=== PATIENT | male | born 1970 | race Caucasian/White ===

== ENCOUNTER 2024-07-11 11:53 | Inpatient (IN) | payer OTHER ==
[2024-07-11 12:29] VITALS: BMI 23.8
[2024-07-11] MEDS ORDERED: IBUPROFEN 600 MG TABLET (FP) PO PRN (12:52)
[2024-07-11] MEDS ORDERED: NALOXONE (NARCAN) HCL 4 MG/0.1 ML SPRAY NS PRN (12:52)
[2024-07-11] MEDS ORDERED: POLYETHYLENE GLYCOL (HEALTHYLAX) 3350 17 GM PACKET PO PRN (12:52)
[2024-07-11] MEDS ORDERED: ACETAMINOPHEN 325 MG TABLET (FP) PO PRN (12:52)
[2024-07-11] MEDS ORDERED: BENZONATATE 200 MG CAPSULE PO PRN (12:52)
[2024-07-11] MEDS ORDERED: MAGNESIUM HYDROX 2400MG/30ML ORAL SUSPENSION 30 ML CUP PO PRN (12:52)
[2024-07-11] MEDS ORDERED: NICOTINE POLACRILEX 2 MG GUM BUC PRN (12:52)
[2024-07-11] MEDS ORDERED: guaiFENesin 600 MG TABLET.ER (FP) PO PRN (12:52)
[2024-07-11] MEDS ORDERED: BISMUTH SUBSALICYLATE 524 MG/30 ML PO PRN (12:52)
[2024-07-11] MEDS ORDERED: ONDANSETRON *ODT* 4 MG TABLET SL PRN (12:52)
[2024-07-11] MEDS ORDERED: IBUPROFEN 400 MG TABLET (FP) PO PRN (12:52)
[2024-07-11] MEDS ORDERED: hydrOXYzine PAMOATE 25 MG CAPSULE (FP) PO PRN (12:52)
[2024-07-11] MEDS ORDERED: chlordiazePOXIDE HCL 25 MG CAPSULE PO PRN (12:52)
[2024-07-11] MEDS ORDERED: BENZOCAINE/MENTHOL (CHLORASEPTIC ) LOZENGE MM PRN (12:52)
[2024-07-11] MEDS ORDERED: NICOTINE POLACRILEX 2 MG LOZENGE BC PRN (12:52)
[2024-07-11] MEDS ORDERED: MAG HYDROX/AL HYDROX/SIMETH 30 ML UNIT-DOSE CUP PO PRN (12:52)
[2024-07-11] MEDS: amLODIPine BESYLATE 5 MG TABLET (FP) PO SCH (15:01)
[2024-07-11] MEDS ORDERED: amLODIPine BESYLATE 5 MG TABLET (FP) ONE (15:02)
[2024-07-11] MEDS: hydrOXYzine PAMOATE 50 MG CAPSULE (FP) PO PRN (15:48)
[2024-07-11] MEDS: chlordiazePOXIDE HCL 25 MG CAPSULE PO SCH (17:10)
[2024-07-11] MEDS: NALTREXONE HCL 50 MG TABLET PO ONE (18:14)
[2024-07-11] MEDS: VITAMINS A AND D TOPICAL OINTMENT TP SCH (19:10)
[2024-07-11] MEDS: MELATONIN 5 MG TABLETS PO SCH (22:39)
[2024-07-11] MEDS: APIXABAN 5 MG TABLET PO SCH (22:39)
[2024-07-11] MEDS: THIAMINE 100 MG TABLET PO SCH (22:41)
[2024-07-11] MEDS: CLOTRIMAZOLE 1% CREAM TP SCH (22:41)
[2024-07-11] MEDS: METHOCARBAMOL 500 MG TABLET PO PRN (22:41)
[2024-07-11] MEDS: MIRTAZAPINE 15 MG TABLET (FP) PO SCH (22:42)
[2024-07-12] MEDS: LEVOTHYROXINE NA 150 MCG TABLET PO SCH (08:10)
[2024-07-12] MEDS: LEVOTHYROXINE 50 MCG, LEVOTHYROXINE 100 MCG PO SCH (09:07)
[2024-07-12] MEDS: PRENATAL VITAMINS W/ FOLIC ACID TABLET (FP) PO SCH (10:28)
[2024-07-12] MEDS: NALTREXONE HCL 50 MG TABLET PO SCH (10:29)
[2024-07-12] MEDS: NICOTINE 14 MG/24 HOURS TOPICAL PATCH TD SCH (10:34)
[2024-07-12] MEDS: DICYCLOMINE HCL 10 MG CAPSULE PO PRN (15:03)
[2024-07-12] MEDS: PANTOPRAZOLE 40 MG TABLET PO SCH (15:33)
[2024-07-12] MEDS: TRIMETHOBENZAMIDE HCL 200MG/2ML INJ IM PRN (15:38)
[2024-07-12 16:02] LABS: HEMATOCRIT 41.1 % (35.4-49); MCH 31.4 pg (25.7-33.7); MCHC 34.2 g/dl (32.0-35.9); MEAN CELL VOLUME 91.9 fl (80-96); MEAN PLT VOLUME 9.6 fl (7.5-11.1); PLATELET COUNT 200 10^3/uL (134-434); RBC 4.48 M/mm3 (4.00-5.60); RDW 13.3 % (11.9-15.9); WHITE BLOOD COUNT 7.5 K/mm3 (4.0-10.0)
[2024-07-12 18:29] LABS: POTASSIUM 4.4 mmol/L (3.5-5.1)
[2024-07-12 18:37] LABS: ALBUMIN 3.6 g/dl (3.4-5.0); CALCIUM 9.6 mg/dL (8.5-10.1)
[2024-07-12 18:40] LABS: CREATININE 0.9 mg/dL (0.55-1.3)
[2024-07-12 18:42] LABS: TOT PROT 6.8 g/dl (6.4-8.2)
[2024-07-13] MEDS: SUCRALFATE 1 GM TABLET (FP) PO SCH (05:33)
[2024-07-13] MEDS: chlordiazePOXIDE HCL 25 MG CAPSULE PO SCH (05:50)
[2024-07-14] MEDS ORDERED: chlordiazePOXIDE HCL 10 MG CAPSULE PO PRN
[2024-07-14] MEDS: chlordiazePOXIDE HCL 10 MG CAPSULE PO SCH (05:58)
[2024-07-14] MEDS ORDERED: BRIMONIDINE TARTRATE 0.15% OPHTHALMIC 5 ML BOTTLE OS SCH (22:00)
[2024-07-14] MEDS ORDERED: LATANOPROST 0.005% OPHTH SOLN 2.5ML BOTTLE OS SCH (22:00)
[2024-07-14] MEDS: LOPERAMIDE HCL 2 MG CAPSULE PO PRN (22:44)
[2024-07-14] MEDS: BRIMONIDINE TARTRATE 0.15% OPHTHALMIC 5 ML BOTTLE OS SCH (22:46)
[2024-07-14] MEDS: LATANOPROST 0.005% OPHTH SOLN 2.5ML BOTTLE OS SCH (22:47)
[2024-07-15] MEDS: chlordiazePOXIDE HCL 10 MG CAPSULE PO SCH (06:00)
[2024-07-15 07:24] VITALS: BP 104/63; PULSE 71; RESP 17; TEMP 97.6
[2024-07-15] MEDS ORDERED: NALOXONE (NYS OPIOID OVERDOSE PROGRAM) 4 MG/0.1 ML SPRAY NS PRN (07:45)
[2024-07-15] MEDS ORDERED: ERGOCALCIFEROL (VIT D2) 50,000 UNIT (1.25 MG) CAPSULE PO SCH (10:00)
[2024-07-16] MEDS ORDERED: chlordiazePOXIDE HCL 10 MG CAPSULE PO ONE (05:00)
== END 2024-07-15 06:55 | disposition left against medical advice (07) | DRG 774 ==
LOC: YASAS 11:53 → Y6N 13:26
PROVIDERS: ADMIT Allergy & Immunology; ATTEND Surgery
PROC: HZ2ZZZZ Detoxification Services for Substance Abuse Treatment (ICD-10-PCS; principal; 2024-07-11)
DX: F10.230 Alcohol dependence with withdrawal, uncomplicated (principal); F14.20 Cocaine dependence, uncomplicated; F17.210 Nicotine dependence, cigarettes, uncomplicated; F19.280 Other psychoactive substance dependence with psychoactive substance-induced anxiety disorder; F19.282 Other psychoactive substance dependence with psychoactive substance-induced sleep disorder; E03.9 Hypothyroidism, unspecified; I10 Essential (primary) hypertension; K21.9 Gastro-esophageal reflux disease without esophagitis; B35.3 Tinea pedis; Z86.711 Personal history of pulmonary embolism; Z79.01 Long term (current) use of anticoagulants; F91.8 Other conduct disorders; Z91.199 Patient's noncompliance with other medical treatment and regimen due to unspecified reason
CPT/HCPCS: 36415; 80053; 80305; 80307; 84439; 84443; 85027; 86780; 93005; 93010